=== PATIENT | female | born 1970 | race Caucasian/White ===

== ENCOUNTER 2018-03-23 07:52 | Inpatient (IN) | payer MEDICAID ==
[~2018-03-23] VITALS: Ht 172.7 cm; Wt 83.7 kg
[~2018-03-23 07:52] MED LIST: AMLO10TA6 PO; LEVO25TA4 PO; LEVO25TA7; LEVO750T6 PO
[2018-03-23] MEDS ORDERED: MORPHINE SULFATE 4 MG/ML, 1ML IVPush PRN (09:00)
[2018-03-23] MEDS ORDERED: SODIUM CHLORIDE 0.9% 1,000ML IVBOLUS ONE (09:00)
[2018-03-23] MEDS ORDERED: VANCOMYCIN PER PHARMACY MC ONE (09:00)
[2018-03-23] MEDS ORDERED: VANCOMYCIN 1,400 MG in SODIUM CHLORIDE 0.9% 250 ML IV ONE (09:00)
[2018-03-23] MEDS ORDERED: PIPERACILLIN/TAZO/PMX 3.375GM 50 ML IVPB ONE (09:00)
[2018-03-23] MEDS ORDERED: PHARMACOKINETIC CONSULTATION MC ONE ×2 (09:00→13:00)
[2018-03-23 09:22] LABS: BASOPHILS # (AUTO) 0.06 x10^3/uL (0-0.1); BASOPHILS % (AUTO) 1 % (0-1); EOSINOPHILS # (AUTO) 0.01 x10^3/uL (0-0.4); EOSINOPHILS % (AUTO) 0 % (1-7); LYMPHOCYTES # (AUTO) 0.32 x10^3/uL (1-3.4); LYMPHOCYTES % (AUTO) 3 % (22-44); MD NO; MEAN CORPUSCULAR HEMOGLOBIN 18.7 pg (27.0-34.8); MEAN CORPUSCULAR HGB CONC 30.2 g/dL (32.4-35.8); MEAN CORPUSCULAR VOLUME 62.1 fL (80-100); MEAN PLATELET VOLUME 8.8 fL (7.4-10.4); MONOCYTES # (AUTO) 0.62 x10^3/uL (0.2-0.8); MONOCYTES % (AUTO) 6 % (2-9); NEUTROPHILS # (AUTO) 9.17 x10^3/uL (1.8-6.8); NEUTROPHILS % (AUTO) 90 % (42-75); PLATELET COUNT 168 x10^3/uL (130-400); RED BLOOD COUNT 4.03 x10^6/uL (3.82-5.3); RED CELL DISTRIBUTION WIDTH 18.2 % (9.6-15.2)
[2018-03-23 09:30] LABS: INTERNATIONAL NORMALIZED RATIO 1.03 (0.93-1.1); PROTHROMBIN TIME 10.6 Seconds (9.6-11.5)
[2018-03-23 09:33] LABS: ALANINE AMINOTRANSFERASE 41 U/L (12-78); ALBUMIN 3.1 g/dL (3.4-5.0); ANION GAP 9 mmol/L (5-15); CHLORIDE 100 mmol/L (98-107)
[2018-03-23 09:37] LABS: ALKALINE PHOSPHATASE 99 U/L (45-117); BILIRUBIN,TOTAL 0.5 mg/dL (0.2-1.0); TOTAL PROTEIN 7.8 g/dL (6.4-8.2); TROPONIN I 0.053 ng/mL (0.000-0.045)
[2018-03-23] MEDS ORDERED: PIPERACILLIN/TAZO/PMX 3.375GM 50 ML ONE (10:01)
[2018-03-23] MEDS ORDERED: MORPHINE SULFATE 4 MG/ML, 1ML ONE (10:02)
[2018-03-23] MEDS ORDERED: ACETAMINOPHEN 500 MG TABLET ONE (10:27)
[2018-03-23] MEDS ORDERED: ACETAMINOPHEN 500 MG TABLET PO ONE (10:30)
[2018-03-23 11:05] LABS: MICROSCOPIC NOT IND
[2018-03-23 11:10] LABS: CULTURE INDICATED? NO
[2018-03-23] MEDS ORDERED: PIPERACILLIN/TAZO/PMX 3.375GM 50 ML IV SCH (11:30)
[2018-03-23] MEDS ORDERED: LIDODERM 5% PATCH TD PRN (11:30)
[2018-03-23] MEDS ORDERED: ONDANSETRON 2MG/ML, 2ML IVPush PRN (11:30)
[2018-03-23] MEDS ORDERED: KETOROLAC 30 MG/1 ML IV PRN (11:30)
[2018-03-23] MEDS ORDERED: METHOCARBAMOL 500 MG TABLET PO PRN (11:30)
[2018-03-23] MEDS ORDERED: VANCOMYCIN PER PHARMACY MC PRN (11:30)
[2018-03-23] MEDS ORDERED: ONDANSETRON ODT 4 MG PO PRN (11:30)
[2018-03-23] MEDS ORDERED: ACETAMINOPHEN 325 MG TABLET PO PRN (11:30)
[2018-03-23] MEDS ORDERED: ENOXAPARIN 40 MG/0.4 ML ONE (11:31)
[2018-03-23] MEDS: ENOXAPARIN 40 MG/0.4 ML SQ SCH (11:34)
[2018-03-23] MEDS ORDERED: IBUPROFEN 200 MG TABLET ONE (11:44)
[2018-03-23] MEDS: IBUPROFEN 600 MG TABLET PO PRN (11:45)
[2018-03-23 12:04] LABS: HCT (SEDRATE) 23.8 % (34.6-47.8)
[2018-03-23 12:26] LABS: C-REACTIVE PROTEIN, QUANT 1.6 mg/dL (0.02-0.49); THYROID STIMULATING HORMONE 0.755 mIU/L (0.358-3.740)
[2018-03-23] MEDS: SODIUM CHLORIDE 0.9% 1,000 ML IV SCH (12:39)
[2018-03-23 12:48] VITALS: BP 133/76
[2018-03-23] MEDS ORDERED: VANCOMYCIN 1,600 MG in SODIUM CHLORIDE 0.9% 250 ML IV SCH (13:00)
[2018-03-23] MEDS ORDERED: PHARMACOKINETIC MONITORING MC PRN (13:00)
[2018-03-23 14:22] LABS: MICROSCOPIC NOT IND
[2018-03-23 14:26] LABS: CULTURE INDICATED? NO
[2018-03-23 15:49] LABS: TROPONIN I 0.048 ng/mL (0.000-0.045)
[2018-03-23] MEDS: PIPERACILLIN/TAZO/PMX 3.375GM 50 ML IV SCH (17:40)
[2018-03-23 19:43] VITALS: BP 116/71
[2018-03-23 21:18] LABS: TROPONIN I 0.036 ng/mL (0.000-0.045)
[2018-03-23] MEDS: VANCOMYCIN 1,600 MG in SODIUM CHLORIDE 0.9% 250 ML IV SCH (21:36)
[2018-03-24 00:15] VITALS: BP 126/74
[2018-03-24] MEDS: PIPERACILLIN/TAZO/PMX 3.375GM 50 ML IV SCH ×4 (00:43→21:12)
[2018-03-24] MEDS: IBUPROFEN 600 MG TABLET PO PRN (00:52)
[2018-03-24 05:47] LABS: MEAN CORPUSCULAR HEMOGLOBIN 18.9 pg (27.0-34.8); MEAN CORPUSCULAR VOLUME 63.1 fL (80-100); RED BLOOD COUNT 4.13 x10^6/uL (3.82-5.3); RED CELL DISTRIBUTION WIDTH 18.2 % (9.6-15.2)
[2018-03-24 05:48] LABS: ALBUMIN 3.1 g/dL (3.4-5.0); ANION GAP 8 mmol/L (5-15); CALCIUM 8.1 mg/dL (8.5-10.1); CHLORIDE 107 mmol/L (98-107)
[2018-03-24 05:54] LABS: ALANINE AMINOTRANSFERASE 36 U/L (12-78); ALKALINE PHOSPHATASE 99 U/L (45-117); BILIRUBIN,TOTAL 0.5 mg/dL (0.2-1.0); CHOL/HDL RATIO 1.9; CHOLESTEROL, TOTAL 106 mg/dL (140-239); CREATININE 0.93 mg/dL (0.55-1.02); HDL CHOL % 52 % (28-40); HDL CHOLESTEROL (DIRECT) 55 mg/dL (40-60); LDL CHOLESTEROL,CALCULATED 42 mg/dL (54-169); LDL/HDL RATIO 0.8 (0.5-3.0); TOTAL PROTEIN 8.2 g/dL (6.4-8.2); TRIGLYCERIDES 46 mg/dL (50-200); VLDL CHOLESTEROL 9 mg/dL (0-25)
[2018-03-24 06:10] LABS: MD YES
[2018-03-24 06:16] LABS: PLATELET COUNT 181 x10^3/uL (130-400)
[2018-03-24 06:17] LABS: MEAN CORPUSCULAR HGB CONC 29.9 g/dL (32.4-35.8)
[2018-03-24 06:21] LABS: BAND#(MANUAL) 0.39 x10^3/uL; BANDS%(MANUAL) 4 % (0-7); EOS% (MANUAL) 1 % (1-7); LYMPH#(MANUAL) 1.08 x10^3/uL (1-3.4); LYMPHS% (MANUAL) 11 % (22-44); MONOS#(MANUAL) 0.59 x10^3/uL (0.3-2.7); MONOS% (MANUAL) 6 % (2-9); SEG#(MANUAL) 7.64 x10^3/uL (1.8-6.8); SEGS% (MANUAL) 78 % (42-75)
[2018-03-24 06:22] LABS: ANISOCYTOSIS 1+
[2018-03-24 06:23] LABS: HYPOCHROMIA 1+; MICROCYTOSIS 1+
[2018-03-24 06:26] LABS: <PLATELET ESTIMATE> ADEQUATE; <PLT MORPHOLOGY> NORMAL PLT MORPH
[2018-03-24 06:27] LABS: POLYCHROMASIA 1+
[2018-03-24 07:28] VITALS: BP 121/71
[2018-03-24] MEDS: VANCOMYCIN 1,600 MG in SODIUM CHLORIDE 0.9% 250 ML IV SCH ×2 (10:08→21:57)
[2018-03-24 12:56] VITALS: BP 119/67
[2018-03-24] MEDS: ENOXAPARIN 40 MG/0.4 ML SQ SCH (14:12)
[2018-03-24 20:00] VITALS: BP 132/75
[2018-03-24] MEDS ORDERED: GABAPENTIN 300 MG CAPSULE PO SCH (21:00)
[2018-03-24] MEDS: METHADONE 10 MG TABLET PO PRN (21:02)
[2018-03-24] MEDS: GABAPENTIN 300 MG CAPSULE PO PRN (21:03)
[2018-03-25] VITALS (10 sets, daily range): BP systolic 135–163; BP diastolic 77–95
[2018-03-25] MEDS: PIPERACILLIN/TAZO/PMX 3.375GM 50 ML IV SCH ×3 (02:03→18:02)
[2018-03-25] MEDS: SODIUM CHLORIDE 0.9% 1,000 ML IV SCH ×2 (02:03→17:00)
[2018-03-25] MEDS: IBUPROFEN 600 MG TABLET PO PRN (05:31)
[2018-03-25] MEDS: METHADONE 10 MG TABLET PO PRN ×2 (05:31→15:54)
[2018-03-25] MEDS: GABAPENTIN 300 MG CAPSULE PO PRN (05:31)
[2018-03-25 06:41] LABS: MEAN CORPUSCULAR HEMOGLOBIN 19.1 pg (27.0-34.8); MEAN CORPUSCULAR HGB CONC 30.1 g/dL (32.4-35.8); MEAN CORPUSCULAR VOLUME 63.3 fL (80-100); RED CELL DISTRIBUTION WIDTH 17.9 % (9.6-15.2)
[2018-03-25 06:42] LABS: ALANINE AMINOTRANSFERASE 31 U/L (12-78); ALBUMIN 2.6 g/dL (3.4-5.0); ANION GAP 8 mmol/L (5-15); CALCIUM 7.7 mg/dL (8.5-10.1); CHLORIDE 111 mmol/L (98-107); CREATININE 0.79 mg/dL (0.55-1.02)
[2018-03-25 06:44] LABS: ALKALINE PHOSPHATASE 69 U/L (45-117); BILIRUBIN,TOTAL 0.3 mg/dL (0.2-1.0); TOTAL PROTEIN 6.9 g/dL (6.4-8.2)
[2018-03-25 06:52] LABS: MD YES
[2018-03-25 06:54] LABS: MEAN PLATELET VOLUME 9.3 fL (7.4-10.4); PLATELET COUNT 152 x10^3/uL (130-400)
[2018-03-25 06:56] LABS: ANISOCYTOSIS 1+; EOS#(MANUAL) 0.05 x10^3/uL (0.0-0.4); EOS% (MANUAL) 1 % (1-7); LYMPH#(MANUAL) 1.54 x10^3/uL (1-3.4); LYMPHS% (MANUAL) 32 % (22-44); MICROCYTOSIS 2+; MONOS#(MANUAL) 0.43 x10^3/uL (0.3-2.7); MONOS% (MANUAL) 9 % (2-9); SEG#(MANUAL) 2.78 x10^3/uL (1.8-6.8); SEGS% (MANUAL) 58 % (42-75)
[2018-03-25 06:57] LABS: <PLATELET ESTIMATE> ADEQUATE; <PLT MORPHOLOGY> NORMAL PLT MORPH; HYPOCHROMIA 1+; OVALOCYTES 1+; POLYCHROMASIA 1+
[2018-03-25] MEDS: IRON SUCROSE COMPLEX 100MG/5ML IV SCH (09:21)
[2018-03-25] MEDS: VANCOMYCIN 1,600 MG in SODIUM CHLORIDE 0.9% 250 ML IV SCH (11:07)
[2018-03-25] MEDS: ENOXAPARIN 40 MG/0.4 ML SQ SCH (18:02)
[2018-03-26 00:08] VITALS: BP 150/88
[2018-03-26] MEDS: PIPERACILLIN/TAZO/PMX 3.375GM 50 ML IV SCH ×3 (00:11→11:37)
[2018-03-26 00:34] VITALS: BP 156/72
[2018-03-26] MEDS: IBUPROFEN 600 MG TABLET PO PRN ×2 (05:15→20:37)
[2018-03-26 05:42] LABS: ALBUMIN 2.5 g/dL (3.4-5.0); ANION GAP 8 mmol/L (5-15); CALCIUM 8.1 mg/dL (8.5-10.1); CHLORIDE 107 mmol/L (98-107)
[2018-03-26 05:47] LABS: ALANINE AMINOTRANSFERASE 29 U/L (12-78); ALKALINE PHOSPHATASE 75 U/L (45-117); BILIRUBIN,TOTAL 0.4 mg/dL (0.2-1.0); CREATININE 0.84 mg/dL (0.55-1.02); TOTAL PROTEIN 6.8 g/dL (6.4-8.2)
[2018-03-26 06:04] LABS: BASOPHILS % (AUTO) 0 % (0-1); EOSINOPHILS # (AUTO) 0.26 x10^3/uL (0-0.4); EOSINOPHILS % (AUTO) 5 % (1-7); LYMPHOCYTES # (AUTO) 2.04 x10^3/uL (1-3.4); LYMPHOCYTES % (AUTO) 37 % (22-44); MD NO; MEAN CORPUSCULAR HEMOGLOBIN 20.3 pg (27.0-34.8); MEAN CORPUSCULAR HGB CONC 30.9 g/dL (32.4-35.8); MEAN CORPUSCULAR VOLUME 65.8 fL (80-100); MEAN PLATELET VOLUME 9.2 fL (7.4-10.4); MONOCYTES # (AUTO) 0.51 x10^3/uL (0.2-0.8); MONOCYTES % (AUTO) 9 % (2-9); NEUTROPHILS # (AUTO) 2.73 x10^3/uL (1.8-6.8); NEUTROPHILS % (AUTO) 49 % (42-75); PLATELET COUNT 157 x10^3/uL (130-400); RED BLOOD COUNT 4.05 x10^6/uL (3.82-5.3); RED CELL DISTRIBUTION WIDTH 20.7 % (9.6-15.2)
[2018-03-26] MEDS: VANCOMYCIN 1,600 MG in SODIUM CHLORIDE 0.9% 250 ML IV SCH (06:40)
[2018-03-26 07:11] VITALS: BP 146/79
[2018-03-26] MEDS: IRON SUCROSE COMPLEX 100MG/5ML IV SCH (09:16)
[2018-03-26] MEDS: METHADONE 10 MG TABLET PO PRN ×2 (09:50→20:37)
[2018-03-26 12:45] VITALS: BP 138/77
[2018-03-26] MEDS: CEFAZOLIN 2,000 MG in SODIUM CHLORIDE 0.9% 50 ML IVPB SCH (17:18)
[2018-03-26] MEDS: ENOXAPARIN 40 MG/0.4 ML SQ SCH (17:19)
[2018-03-26 18:49] VITALS: BP 155/83
[2018-03-26 21:20] LABS: OCCULT BLOOD NEGATIVE (NEGATIVE)
[2018-03-27 00:06] VITALS: BP 147/87
[2018-03-27] MEDS: CEFAZOLIN 2,000 MG in SODIUM CHLORIDE 0.9% 50 ML IVPB SCH ×3 (01:36→17:08)
[2018-03-27 05:15] LABS: ALANINE AMINOTRANSFERASE 33 U/L (12-78); ALBUMIN 2.7 g/dL (3.4-5.0); ANION GAP 9 mmol/L (5-15); CHLORIDE 105 mmol/L (98-107); CREATININE 0.79 mg/dL (0.55-1.02)
[2018-03-27 05:18] LABS: ALKALINE PHOSPHATASE 83 U/L (45-117); BILIRUBIN,TOTAL 0.2 mg/dL (0.2-1.0); TOTAL PROTEIN 7.3 g/dL (6.4-8.2)
[2018-03-27 05:48] LABS: MD YES
[2018-03-27 05:49] LABS: MEAN CORPUSCULAR HEMOGLOBIN 20.3 pg (27.0-34.8); MEAN CORPUSCULAR HGB CONC 30.7 g/dL (32.4-35.8); MEAN CORPUSCULAR VOLUME 66.2 fL (80-100); MEAN PLATELET VOLUME 10.8 fL (7.4-10.4); PLATELET COUNT 207 x10^3/uL (130-400); RED BLOOD COUNT 4.66 x10^6/uL (3.82-5.3); RED CELL DISTRIBUTION WIDTH 20.2 % (9.6-15.2)
[2018-03-27 05:53] LABS: ANISOCYTOSIS 1+; EOS#(MANUAL) 0.42 x10^3/uL (0.0-0.4); EOS% (MANUAL) 8 % (1-7); LYMPH#(MANUAL) 1.98 x10^3/uL (1-3.4); LYMPHS% (MANUAL) 38 % (22-44); MONOS#(MANUAL) 0.26 x10^3/uL (0.3-2.7); MONOS% (MANUAL) 5 % (2-9); SEG#(MANUAL) 2.55 x10^3/uL (1.8-6.8); SEGS% (MANUAL) 49 % (42-75)
[2018-03-27 05:55] LABS: <PLATELET ESTIMATE> ADEQUATE; HYPOCHROMIA 1+; MICROCYTOSIS 1+; OVALOCYTES 1+; POLYCHROMASIA 1+
[2018-03-27 05:58] LABS: <PLT MORPHOLOGY> NORMAL PLT MORPH
[2018-03-27 09:07] VITALS: BP 120/68
[2018-03-27] MEDS: IRON SUCROSE COMPLEX 100MG/5ML IV SCH (09:26)
[2018-03-27] MEDS ORDERED: FUROSEMIDE 40 MG/4 ML IV ONE (12:00)
[2018-03-27] MEDS ORDERED: POTASSIUM CHLORIDE 20 MEQ TAB.ER.PRT PO ONE (12:00)
[2018-03-27] MEDS: METHADONE 10 MG TABLET PO PRN (12:06)
[2018-03-27 15:58] VITALS: BP 131/80
[2018-03-27] MEDS: ENOXAPARIN 40 MG/0.4 ML SQ SCH (17:09)
[2018-03-27 20:56] VITALS: BP 113/64
[2018-03-28] MEDS: CEFAZOLIN 2,000 MG in SODIUM CHLORIDE 0.9% 50 ML IVPB SCH ×3 (01:20→19:34)
[2018-03-28] MEDS: METHADONE 10 MG TABLET PO PRN ×3 (01:23→18:32)
[2018-03-28 01:24] VITALS: BP 133/84
[2018-03-28 05:09] LABS: ANION GAP 7 mmol/L (5-15); CALCIUM 8.6 mg/dL (8.5-10.1); CHLORIDE 103 mmol/L (98-107)
[2018-03-28 08:41] VITALS: BP 138/86
[2018-03-28 16:37] VITALS: BP 170/79
[2018-03-28 17:06] VITALS: BP 160/94
[2018-03-28] MEDS: ENOXAPARIN 40 MG/0.4 ML SQ SCH (18:00)
[2018-03-28 20:00] VITALS: BP 172/97
[2018-03-28] MEDS ORDERED: hydrALAzine 20 MG/ML, 1ML IV PRN (23:00)
[2018-03-29] MEDS: METHADONE 10 MG TABLET PO PRN ×2 (01:00→20:54)
[2018-03-29 01:59] VITALS: BP 136/76
[2018-03-29] MEDS: CEFAZOLIN 2,000 MG in SODIUM CHLORIDE 0.9% 50 ML IVPB SCH ×3 (02:21→19:34)
[2018-03-29 08:53] VITALS: BP 148/93
[2018-03-29 12:35] VITALS: BP 143/84
[2018-03-29] MEDS: LACTOBACILLUS CHEW TABLET PO SCH ×2 (15:28→20:54)
[2018-03-29] MEDS: ENOXAPARIN 40 MG/0.4 ML SQ SCH (15:29)
[2018-03-29 19:20] VITALS: BP 132/82
[2018-03-30 02:27] VITALS: BP 151/84
[2018-03-30] MEDS: CEFAZOLIN 2,000 MG in SODIUM CHLORIDE 0.9% 50 ML IVPB SCH ×3 (03:10→18:48)
[2018-03-30] MEDS: LACTOBACILLUS CHEW TABLET PO SCH ×3 (09:00→21:45)
[2018-03-30 09:50] VITALS: BP 122/71
[2018-03-30 10:02] VITALS: BP 122/71
[2018-03-30 12:17] VITALS: BP 155/85
[2018-03-30] MEDS: METHADONE 10 MG TABLET PO PRN (16:58)
[2018-03-30] MEDS: ENOXAPARIN 40 MG/0.4 ML SQ SCH (16:58)
[2018-03-30 19:43] VITALS: BP 149/90
[2018-03-31 02:00] VITALS: BP 139/81
[2018-03-31] MEDS: CEFAZOLIN 2,000 MG in SODIUM CHLORIDE 0.9% 50 ML IVPB SCH ×3 (03:00→17:59)
[2018-03-31] MEDS: LACTOBACILLUS CHEW TABLET PO SCH ×3 (09:00→20:55)
[2018-03-31 09:34] VITALS: BP 127/87
[2018-03-31] MEDS ORDERED: PROPOFOL 10 MG/ML, 20ML ONE (11:46)
[2018-03-31 14:14] VITALS: BP 133/79
[2018-03-31] MEDS: METHADONE 10 MG TABLET PO PRN (15:22)
[2018-03-31] MEDS: ENOXAPARIN 40 MG/0.4 ML SQ SCH (16:41)
[2018-03-31] MEDS: FERROUS SULFATE 325 MG TABLET PO SCH (17:59)
[2018-03-31 19:12] VITALS: BP 130/76
[2018-04-01] MEDS: METHADONE 10 MG TABLET PO PRN ×2 (01:55→10:00)
[2018-04-01] MEDS: CEFAZOLIN 2,000 MG in SODIUM CHLORIDE 0.9% 50 ML IVPB SCH ×3 (01:56→21:12)
[2018-04-01 02:07] VITALS: BP 127/80
[2018-04-01 08:25] VITALS: BP 132/74
[2018-04-01] MEDS: LACTOBACILLUS CHEW TABLET PO SCH ×3 (08:55→21:12)
[2018-04-01] MEDS: FERROUS SULFATE 325 MG TABLET PO SCH ×3 (08:55→17:37)
[2018-04-01 14:58] VITALS: BP 127/89
[2018-04-01] MEDS: ENOXAPARIN 40 MG/0.4 ML SQ SCH (17:37)
[2018-04-01 19:13] VITALS: BP 166/89
[2018-04-02] MEDS: METHADONE 10 MG TABLET PO PRN (01:18)
[2018-04-02] MEDS: CEFAZOLIN 2,000 MG in SODIUM CHLORIDE 0.9% 50 ML IVPB SCH ×3 (05:20→21:28)
[2018-04-02] MEDS: LACTOBACILLUS CHEW TABLET PO SCH ×3 (08:08→21:27)
[2018-04-02] MEDS: FERROUS SULFATE 325 MG TABLET PO SCH ×3 (08:08→16:42)
[2018-04-02] MEDS: METHADONE 10 MG TABLET PO SCH ×2 (10:10→18:02)
[2018-04-02 14:00] VITALS: BP 155/99
[2018-04-02] MEDS: ENOXAPARIN 40 MG/0.4 ML SQ SCH (18:02)
[2018-04-02 20:00] VITALS: BP 151/97
[2018-04-03] MEDS: METHADONE 10 MG TABLET PO SCH ×3 (02:00→18:05)
[2018-04-03 02:02] VITALS: BP 135/84
[2018-04-03] MEDS: CEFAZOLIN 2,000 MG in SODIUM CHLORIDE 0.9% 50 ML IVPB SCH ×3 (05:02→21:33)
[2018-04-03 08:00] VITALS: BP 124/82
[2018-04-03] MEDS: FERROUS SULFATE 325 MG TABLET PO SCH ×3 (08:31→16:40)
[2018-04-03] MEDS: LACTOBACILLUS CHEW TABLET PO SCH ×3 (08:31→21:34)
[2018-04-03 14:00] VITALS: BP 125/82
[2018-04-03] MEDS: ENOXAPARIN 40 MG/0.4 ML SQ SCH (18:05)
[2018-04-03 18:29] VITALS: BP 117/76
[2018-04-04 00:53] VITALS: BP 116/68
[2018-04-04] MEDS: METHADONE 10 MG TABLET PO SCH ×3 (02:12→18:44)
[2018-04-04 04:55] LABS: MEAN CORPUSCULAR HEMOGLOBIN 21.5 pg (27.0-34.8); MEAN CORPUSCULAR HGB CONC 30.7 g/dL (32.4-35.8); MEAN CORPUSCULAR VOLUME 69.8 fL (80-100); MEAN PLATELET VOLUME 10.2 fL (7.4-10.4); PLATELET COUNT 226 x10^3/uL (130-400); RED BLOOD COUNT 4.77 x10^6/uL (3.82-5.3); RED CELL DISTRIBUTION WIDTH 25.6 % (9.6-15.2)
[2018-04-04] MEDS: CEFAZOLIN 2,000 MG in SODIUM CHLORIDE 0.9% 50 ML IVPB SCH ×3 (05:26→21:55)
[2018-04-04 06:05] LABS: MD YES
[2018-04-04 06:07] LABS: BASOS#(MANUAL) 0.04 x10^3/uL (0-0.1); BASOS% (MANUAL) 1 % (0-1); EOS#(MANUAL) 0.31 x10^3/uL (0.0-0.4); EOS% (MANUAL) 8 % (1-7); LYMPH#(MANUAL) 2.15 x10^3/uL (1-3.4); LYMPHS% (MANUAL) 55 % (22-44); MONOS#(MANUAL) 0.16 x10^3/uL (0.3-2.7); MONOS% (MANUAL) 4 % (2-9); SEG#(MANUAL) 1.25 x10^3/uL (1.8-6.8); SEGS% (MANUAL) 32 % (42-75)
[2018-04-04 06:08] LABS: ANISOCYTOSIS 1+; HYPOCHROMIA 1+; MICROCYTOSIS 1+
[2018-04-04 06:09] LABS: <PLATELET ESTIMATE> ADEQUATE; LARGE PLATELETS 1+; OVALOCYTES 1+
[2018-04-04 08:00] VITALS: BP 160/93
[2018-04-04] MEDS: LACTOBACILLUS CHEW TABLET PO SCH ×3 (10:47→21:55)
[2018-04-04] MEDS: FERROUS SULFATE 325 MG TABLET PO SCH ×3 (10:47→18:44)
[2018-04-04] MEDS: ENOXAPARIN 40 MG/0.4 ML SQ SCH (18:44)
[2018-04-04 23:37] VITALS: BP 115/68
[2018-04-05 02:16] VITALS: BP 118/71
[2018-04-05] MEDS: METHADONE 10 MG TABLET PO SCH ×3 (02:19→18:39)
[2018-04-05] MEDS: CEFAZOLIN 2,000 MG in SODIUM CHLORIDE 0.9% 50 ML IVPB SCH ×3 (05:55→21:19)
[2018-04-05] MEDS: FERROUS SULFATE 325 MG TABLET PO SCH ×3 (08:12→17:31)
[2018-04-05] MEDS: LACTOBACILLUS CHEW TABLET PO SCH ×3 (08:12→21:19)
[2018-04-05 08:20] VITALS: BP 117/72
[2018-04-05 16:11] VITALS: BP 129/74
[2018-04-05] MEDS: ENOXAPARIN 40 MG/0.4 ML SQ SCH (18:39)
[2018-04-05 19:28] VITALS: BP 138/78
[2018-04-06] MEDS: METHADONE 10 MG TABLET PO SCH ×3 (02:12→17:45)
[2018-04-06] MEDS: CEFAZOLIN 2,000 MG in SODIUM CHLORIDE 0.9% 50 ML IVPB SCH ×3 (05:06→20:33)
[2018-04-06 07:27] VITALS: BP 161/103
[2018-04-06] MEDS: LACTOBACILLUS CHEW TABLET PO SCH ×3 (08:57→20:33)
[2018-04-06] MEDS: FERROUS SULFATE 325 MG TABLET PO SCH ×3 (08:57→17:46)
[2018-04-06 10:24] LABS: ALANINE AMINOTRANSFERASE 29 U/L (12-78); ALBUMIN 3.2 g/dL (3.4-5.0); ANION GAP 8 mmol/L (5-15); C-REACTIVE PROTEIN, QUANT 0.09 mg/dL (0.02-0.49); CALCIUM 8.3 mg/dL (8.5-10.1); CHLORIDE 105 mmol/L (98-107); CREATININE 0.83 mg/dL (0.55-1.02)
[2018-04-06 10:26] LABS: ALKALINE PHOSPHATASE 94 U/L (45-117); BILIRUBIN,TOTAL 0.5 mg/dL (0.2-1.0); TOTAL PROTEIN 7.8 g/dL (6.4-8.2)
[2018-04-06 10:38] LABS: MEAN CORPUSCULAR HGB CONC 30.1 g/dL (32.4-35.8); MEAN CORPUSCULAR VOLUME 69.5 fL (80-100); MEAN PLATELET VOLUME 10.4 fL (7.4-10.4); PLATELET COUNT 226 x10^3/uL (130-400); RED BLOOD COUNT 4.77 x10^6/uL (3.82-5.3); RED CELL DISTRIBUTION WIDTH 26.5 % (9.6-15.2)
[2018-04-06 10:49] LABS: MD YES
[2018-04-06 10:50] LABS: EOS#(MANUAL) 0.11 x10^3/uL (0.0-0.4); EOS% (MANUAL) 3 % (1-7); LYMPH#(MANUAL) 1.26 x10^3/uL (1-3.4); LYMPHS% (MANUAL) 35 % (22-44); MONOS#(MANUAL) 0.47 x10^3/uL (0.3-2.7); MONOS% (MANUAL) 13 % (2-9); SEG#(MANUAL) 1.76 x10^3/uL (1.8-6.8); SEGS% (MANUAL) 49 % (42-75)
[2018-04-06 10:51] LABS: <PLATELET ESTIMATE> ADEQUATE
[2018-04-06 10:52] LABS: ANISOCYTOSIS 1+; HYPOCHROMIA 1+; LARGE PLATELETS 1+; MICROCYTOSIS 1+
[2018-04-06 11:00] LABS: HCT (SEDRATE) 33.1 % (34.6-47.8)
[2018-04-06 12:56] VITALS: BP 111/71
[2018-04-06] MEDS: ENOXAPARIN 40 MG/0.4 ML SQ SCH (17:46)
[2018-04-06 19:29] VITALS: BP 141/72
[2018-04-07 01:48] VITALS: BP 137/88
[2018-04-07] MEDS: METHADONE 10 MG TABLET PO SCH ×3 (05:30→22:33)
[2018-04-07] MEDS: CEFAZOLIN 2,000 MG in SODIUM CHLORIDE 0.9% 50 ML IVPB SCH ×2 (05:30→13:00)
[2018-04-07 08:00] VITALS: BP 127/71
[2018-04-07] MEDS: FERROUS SULFATE 325 MG TABLET PO SCH ×3 (09:19→16:46)
[2018-04-07] MEDS: LACTOBACILLUS CHEW TABLET PO SCH ×3 (09:19→22:33)
[2018-04-07] MEDS: CEFAZOLIN PMX 2GM/50ML 50 ML IVPB SCH ×2 (13:56→22:34)
[2018-04-07 14:12] VITALS: BP 118/72
[2018-04-07] MEDS: ENOXAPARIN 40 MG/0.4 ML SQ SCH (18:02)
[2018-04-07 19:39] VITALS: BP 152/88
[2018-04-08 01:36] VITALS: BP 146/82
[2018-04-08] MEDS: CEFAZOLIN PMX 2GM/50ML 50 ML IVPB SCH ×3 (06:07→22:10)
[2018-04-08] MEDS: METHADONE 10 MG TABLET PO SCH ×3 (06:07→22:00)
[2018-04-08 07:40] VITALS: BP 142/79
[2018-04-08] MEDS: FERROUS SULFATE 325 MG TABLET PO SCH ×3 (08:00→17:00)
[2018-04-08] MEDS: LACTOBACILLUS CHEW TABLET PO SCH ×3 (09:00→21:00)
[2018-04-08 13:06] VITALS: BP 139/76
[2018-04-08] MEDS ORDERED: DOCUSATE 100 MG CAPSULE PO PRN (16:00)
[2018-04-08] MEDS: ENOXAPARIN 40 MG/0.4 ML SQ SCH (18:00)
[2018-04-08 21:18] VITALS: BP 144/93
[2018-04-09] MEDS: METHADONE 10 MG TABLET PO SCH ×3 (05:56→17:58)
[2018-04-09 07:00] VITALS: BP 160/75
[2018-04-09] MEDS: LACTOBACILLUS CHEW TABLET PO SCH ×3 (08:38→19:34)
[2018-04-09] MEDS: FERROUS SULFATE 325 MG TABLET PO SCH ×3 (08:38→15:58)
[2018-04-09] MEDS: CEFAZOLIN PMX 2GM/50ML 50 ML IVPB SCH ×2 (08:40→15:58)
[2018-04-09 13:30] VITALS: BP 125/75
[2018-04-09 16:27] LABS: AMPHETAMINE SCREEN, URINE Positive (Negative); BARBITURATE SCREEN, URINE Negative (Negative); BENZODIAZEPINE SCREEN, URINE Negative (Negative); CANNABINOID SCREEN, URINE Negative (Negative); COCAINE SCREEN, URINE Negative (Negative); METHADONE SCREEN, URINE Positive (Negative); OPIATE SCREEN, URINE Positive (Negative)
[2018-04-09] MEDS: ENOXAPARIN 40 MG/0.4 ML SQ SCH (18:00)
[2018-04-09 19:31] VITALS: BP 125/81
[2018-04-10] MEDS: CEFAZOLIN PMX 2GM/50ML 50 ML IVPB SCH ×3 (02:28→19:31)
[2018-04-10] MEDS: METHADONE 10 MG TABLET PO SCH ×3 (02:28→18:32)
[2018-04-10] MEDS: FERROUS SULFATE 325 MG TABLET PO SCH ×3 (08:00→18:32)
[2018-04-10 08:24] VITALS: BP 123/77
[2018-04-10] MEDS: LACTOBACILLUS CHEW TABLET PO SCH ×3 (09:00→21:21)
[2018-04-10 13:36] VITALS: BP 119/78
[2018-04-10] MEDS: ENOXAPARIN 40 MG/0.4 ML SQ SCH (18:00)
[2018-04-10 19:10] VITALS: BP 112/69
[2018-04-11 00:40] VITALS: BP 130/67
[2018-04-11] MEDS: METHADONE 10 MG TABLET PO SCH ×3 (02:06→18:23)
[2018-04-11] MEDS: CEFAZOLIN PMX 2GM/50ML 50 ML IVPB SCH ×3 (03:15→18:23)
[2018-04-11 08:21] VITALS: BP 143/88
[2018-04-11] MEDS: FERROUS SULFATE 325 MG TABLET PO SCH ×3 (09:05→18:24)
[2018-04-11] MEDS: LACTOBACILLUS CHEW TABLET PO SCH ×3 (09:05→20:50)
[2018-04-11] MEDS ORDERED: METHADONE 5 MG TABLET ONE (09:53)
[2018-04-11] MEDS ORDERED: LORazepam 2 MG/ML, 1ML IVPush PRN (11:30)
[2018-04-11 14:00] VITALS: BP 149/101
[2018-04-11] MEDS: ENOXAPARIN 40 MG/0.4 ML SQ SCH (17:49)
[2018-04-11 18:33] VITALS: BP 146/94
[2018-04-12 00:56] VITALS: BP 143/90
[2018-04-12] MEDS: METHADONE 10 MG TABLET PO SCH ×3 (02:36→17:36)
[2018-04-12 03:00] LABS: MEAN CORPUSCULAR HEMOGLOBIN 21.9 pg (27.0-34.8); MEAN CORPUSCULAR HGB CONC 30.7 g/dL (32.4-35.8); MEAN CORPUSCULAR VOLUME 71.3 fL (80-100); MEAN PLATELET VOLUME 10.6 fL (7.4-10.4); PLATELET COUNT 192 x10^3/uL (130-400); RED BLOOD COUNT 4.24 x10^6/uL (3.82-5.3); RED CELL DISTRIBUTION WIDTH 29.1 % (9.6-15.2)
[2018-04-12 03:03] LABS: MD YES
[2018-04-12 03:10] LABS: ALANINE AMINOTRANSFERASE 25 U/L (12-78); ANION GAP 8 mmol/L (5-15); CALCIUM 8.4 mg/dL (8.5-10.1); CHLORIDE 103 mmol/L (98-107)
[2018-04-12] MEDS: CEFAZOLIN PMX 2GM/50ML 50 ML IVPB SCH ×3 (03:10→19:25)
[2018-04-12 03:13] LABS: <PLATELET ESTIMATE> ADEQUATE; ALKALINE PHOSPHATASE 89 U/L (45-117); ANISOCYTOSIS 1+; BAND#(MANUAL) 0.04 x10^3/uL; BANDS%(MANUAL) 1 % (0-7); BILIRUBIN,TOTAL 0.2 mg/dL (0.2-1.0); CREATININE 0.93 mg/dL (0.55-1.02); EOS#(MANUAL) 0.07 x10^3/uL (0.0-0.4); EOS% (MANUAL) 2 % (1-7); LARGE PLATELETS 1+; LYMPH#(MANUAL) 1.73 x10^3/uL (1-3.4); LYMPHS% (MANUAL) 48 % (22-44); MICROCYTOSIS 1+; MONOS#(MANUAL) 0.54 x10^3/uL (0.3-2.7); MONOS% (MANUAL) 15 % (2-9); OVALOCYTES 1+; POLYCHROMASIA 1+; SEG#(MANUAL) 1.22 x10^3/uL (1.8-6.8); SEGS% (MANUAL) 34 % (42-75); TOTAL PROTEIN 7.7 g/dL (6.4-8.2)
[2018-04-12] MEDS: FERROUS SULFATE 325 MG TABLET PO SCH ×3 (09:40→17:14)
[2018-04-12] MEDS: LACTOBACILLUS CHEW TABLET PO SCH ×3 (09:40→19:25)
[2018-04-12 13:32] VITALS: BP 155/94
[2018-04-12] MEDS: ENOXAPARIN 40 MG/0.4 ML SQ SCH (17:14)
[2018-04-12 19:16] VITALS: BP 146/87
[2018-04-13 03:03] VITALS: BP 128/80
[2018-04-13] MEDS: CEFAZOLIN PMX 2GM/50ML 50 ML IVPB SCH ×3 (03:10→19:29)
[2018-04-13] MEDS: METHADONE 10 MG TABLET PO SCH ×3 (03:10→17:58)
[2018-04-13 08:21] VITALS: BP 146/88
[2018-04-13] MEDS: LACTOBACILLUS CHEW TABLET PO SCH ×3 (10:37→19:28)
[2018-04-13] MEDS: FERROUS SULFATE 325 MG TABLET PO SCH ×3 (10:37→16:50)
[2018-04-13 12:15] VITALS: BP 147/90
[2018-04-13] MEDS: ENOXAPARIN 40 MG/0.4 ML SQ SCH (17:47)
[2018-04-13 19:46] VITALS: BP 123/73
[2018-04-14 01:44] VITALS: BP 118/68
[2018-04-14] MEDS: METHADONE 10 MG TABLET PO SCH ×3 (03:17→17:13)
[2018-04-14] MEDS: CEFAZOLIN PMX 2GM/50ML 50 ML IVPB SCH ×3 (03:24→20:31)
[2018-04-14 07:50] VITALS: BP 147/96
[2018-04-14] MEDS: LACTOBACILLUS CHEW TABLET PO SCH ×3 (09:41→20:31)
[2018-04-14] MEDS: FERROUS SULFATE 325 MG TABLET PO SCH ×3 (09:42→17:13)
[2018-04-14 13:06] VITALS: BP 138/88
[2018-04-14] MEDS: ENOXAPARIN 40 MG/0.4 ML SQ SCH (16:40)
[2018-04-14 19:38] VITALS: BP 108/68
[2018-04-15 01:57] VITALS: BP 101/62
[2018-04-15] MEDS: METHADONE 10 MG TABLET PO SCH ×3 (02:19→17:40)
[2018-04-15] MEDS: CEFAZOLIN 2,000 MG in SODIUM CHLORIDE 0.9% 50 ML IVPB SCH ×3 (03:47→22:40)
[2018-04-15 05:52] LABS: MICROSCOPIC NOT IND
[2018-04-15 06:04] LABS: AMPHETAMINE SCREEN, URINE Positive (Negative); BARBITURATE SCREEN, URINE Negative (Negative); BENZODIAZEPINE SCREEN, URINE Negative (Negative); CANNABINOID SCREEN, URINE Negative (Negative); COCAINE SCREEN, URINE Negative (Negative); METHADONE SCREEN, URINE Positive (Negative); OPIATE SCREEN, URINE Positive (Negative)
[2018-04-15 07:45] VITALS: BP 145/87
[2018-04-15] MEDS: LACTOBACILLUS CHEW TABLET PO SCH ×3 (09:29→21:00)
[2018-04-15] MEDS: FERROUS SULFATE 325 MG TABLET PO SCH ×3 (09:29→16:41)
[2018-04-15 13:09] VITALS: BP 144/83
[2018-04-15] MEDS: ACYCLOVIR 200 MG CAPSULE PO SCH ×3 (14:13→21:00)
[2018-04-15] MEDS: ENOXAPARIN 40 MG/0.4 ML SQ SCH (16:42)
[2018-04-15 18:48] VITALS: BP 162/82
[2018-04-16] MEDS: METHADONE 10 MG TABLET PO SCH ×2 (02:13→16:42)
[2018-04-16] MEDS: ACYCLOVIR 200 MG CAPSULE PO SCH ×5 (06:26→21:23)
[2018-04-16] MEDS: CEFAZOLIN 2,000 MG in SODIUM CHLORIDE 0.9% 50 ML IVPB SCH ×3 (06:26→21:23)
[2018-04-16] MEDS: FERROUS SULFATE 325 MG TABLET PO SCH ×3 (08:00→16:41)
[2018-04-16] MEDS: LACTOBACILLUS CHEW TABLET PO SCH ×3 (08:52→21:23)
[2018-04-16 09:44] VITALS: BP 120/75
[2018-04-16 15:59] VITALS: BP 162/107
[2018-04-16 16:40] VITALS: BP 154/90
[2018-04-16] MEDS: ENOXAPARIN 40 MG/0.4 ML SQ SCH (18:00)
[2018-04-17] MEDS: METHADONE 10 MG TABLET PO SCH ×4 (00:02→20:56)
[2018-04-17] MEDS: CEFAZOLIN 2,000 MG in SODIUM CHLORIDE 0.9% 50 ML IVPB SCH ×3 (05:32→22:26)
[2018-04-17 06:01] LABS: CHLORIDE 102 mmol/L (98-107); MEAN CORPUSCULAR HEMOGLOBIN 22.1 pg (27.0-34.8); MEAN CORPUSCULAR HGB CONC 30.5 g/dL (32.4-35.8); MEAN CORPUSCULAR VOLUME 72.4 fL (80-100); MEAN PLATELET VOLUME 10.3 fL (7.4-10.4); PLATELET COUNT 221 x10^3/uL (130-400); RED BLOOD COUNT 4.83 x10^6/uL (3.82-5.3); RED CELL DISTRIBUTION WIDTH 29.2 % (9.6-15.2)
[2018-04-17 06:07] LABS: ALANINE AMINOTRANSFERASE 17 U/L (12-78); ALKALINE PHOSPHATASE 90 U/L (45-117); ANION GAP 6 mmol/L (5-15); BILIRUBIN,TOTAL 0.4 mg/dL (0.2-1.0); C-REACTIVE PROTEIN, QUANT 0.15 mg/dL (0.02-0.49); CALCIUM 8.7 mg/dL (8.5-10.1); CREATININE 0.71 mg/dL (0.55-1.02); TOTAL PROTEIN 7.6 g/dL (6.4-8.2)
[2018-04-17 06:15] LABS: MD YES
[2018-04-17] MEDS: ACYCLOVIR 200 MG CAPSULE PO SCH ×5 (06:15→21:00)
[2018-04-17 06:18] LABS: <PLATELET ESTIMATE> ADEQUATE; ANISOCYTOSIS 1+; EOS#(MANUAL) 0.17 x10^3/uL (0.0-0.4); EOS% (MANUAL) 5 % (1-7); LARGE PLATELETS 1+; LYMPH#(MANUAL) 1.94 x10^3/uL (1-3.4); LYMPHS% (MANUAL) 57 % (22-44); MICROCYTOSIS 1+; MONOS% (MANUAL) 6 % (2-9); OVALOCYTES 1+; POLYCHROMASIA 1+; SEG#(MANUAL) 1.09 x10^3/uL (1.8-6.8); SEGS% (MANUAL) 32 % (42-75)
[2018-04-17 06:19] LABS: HYPOCHROMIA 1+
[2018-04-17] MEDS: FERROUS SULFATE 325 MG TABLET PO SCH ×3 (08:00→16:47)
[2018-04-17] MEDS: LACTOBACILLUS CHEW TABLET PO SCH ×3 (09:00→21:00)
[2018-04-17 14:29] VITALS: BP 138/86
[2018-04-17] MEDS: ENOXAPARIN 40 MG/0.4 ML SQ SCH (18:06)
[2018-04-17 20:59] VITALS: BP 143/89
[2018-04-18] MEDS: ACYCLOVIR 200 MG CAPSULE PO SCH ×5 (06:00→21:00)
[2018-04-18] MEDS: CEFAZOLIN 2,000 MG in SODIUM CHLORIDE 0.9% 50 ML IVPB SCH ×3 (06:15→22:03)
[2018-04-18] MEDS: FERROUS SULFATE 325 MG TABLET PO SCH ×3 (08:00→16:06)
[2018-04-18] MEDS: LACTOBACILLUS CHEW TABLET PO SCH ×3 (08:21→21:00)
[2018-04-18] MEDS: METHADONE 10 MG TABLET PO SCH ×3 (08:26→20:38)
[2018-04-18] MEDS: ENOXAPARIN 40 MG/0.4 ML SQ SCH (17:30)
[2018-04-18 20:38] VITALS: BP 149/89
[2018-04-19] MEDS: CEFAZOLIN 2,000 MG in SODIUM CHLORIDE 0.9% 50 ML IVPB SCH ×3 (05:36→21:48)
[2018-04-19] MEDS: ACYCLOVIR 200 MG CAPSULE PO SCH ×5 (05:54→20:36)
[2018-04-19 06:36] VITALS: BP 113/71
[2018-04-19] MEDS: LACTOBACILLUS CHEW TABLET PO SCH ×3 (09:17→20:36)
[2018-04-19] MEDS: METHADONE 10 MG TABLET PO SCH ×3 (09:17→20:37)
[2018-04-19] MEDS: FERROUS SULFATE 325 MG TABLET PO SCH ×3 (09:17→16:05)
[2018-04-19 12:07] VITALS: BP 122/80
[2018-04-19] MEDS: ENOXAPARIN 40 MG/0.4 ML SQ SCH (17:44)
[2018-04-19 20:38] VITALS: BP 121/74
[2018-04-20 03:55] VITALS: BP 133/74
[2018-04-20] MEDS ORDERED: CATHFLO-ALTEPLASE 2 MG/2 ML CATHFLUSH ONE (05:00)
[2018-04-20] MEDS: CEFAZOLIN 2,000 MG in SODIUM CHLORIDE 0.9% 50 ML IVPB SCH ×2 (05:58→14:24)
[2018-04-20] MEDS: ACYCLOVIR 200 MG CAPSULE PO SCH ×5 (06:00→20:28)
[2018-04-20 06:17] LABS: HCT (SEDRATE) 33.5 % (34.6-47.8)
[2018-04-20 06:25] LABS: ANION GAP 7 mmol/L (5-15); CALCIUM 8.1 mg/dL (8.5-10.1); CHLORIDE 104 mmol/L (98-107)
[2018-04-20 06:28] LABS: ALANINE AMINOTRANSFERASE 20 U/L (12-78); ALKALINE PHOSPHATASE 87 U/L (45-117); BILIRUBIN,TOTAL 0.2 mg/dL (0.2-1.0); C-REACTIVE PROTEIN, QUANT 0.06 mg/dL (0.02-0.49); CREATININE 0.77 mg/dL (0.55-1.02); TOTAL PROTEIN 7.3 g/dL (6.4-8.2)
[2018-04-20 06:51] VITALS: BP 120/69
[2018-04-20 06:53] LABS: MEAN CORPUSCULAR HEMOGLOBIN 22.4 pg (27.0-34.8); MEAN CORPUSCULAR VOLUME 72.3 fL (80-100); RED BLOOD COUNT 4.62 x10^6/uL (3.82-5.3); RED CELL DISTRIBUTION WIDTH 29.3 % (9.6-15.2)
[2018-04-20 06:54] LABS: MD YES; PLATELET COUNT 194 x10^3/uL (130-400)
[2018-04-20 06:56] LABS: BASOS#(MANUAL) 0.04 x10^3/uL (0-0.1); BASOS% (MANUAL) 1 % (0-1); MONOS#(MANUAL) 0.49 x10^3/uL (0.3-2.7); MONOS% (MANUAL) 12 % (2-9)
[2018-04-20 06:57] LABS: ANISOCYTOSIS 1+; EOS#(MANUAL) 0.25 x10^3/uL (0.0-0.4); EOS% (MANUAL) 6 % (1-7); LYMPH#(MANUAL) 2.21 x10^3/uL (1-3.4); LYMPHS% (MANUAL) 54 % (22-44); MICROCYTOSIS 1+; SEG#(MANUAL) 1.11 x10^3/uL (1.8-6.8); SEGS% (MANUAL) 27 % (42-75)
[2018-04-20 06:58] LABS: <PLATELET ESTIMATE> ADEQUATE; HYPOCHROMIA 1+; LARGE PLATELETS 1+; OVALOCYTES 1+
[2018-04-20] MEDS: LACTOBACILLUS CHEW TABLET PO SCH ×3 (08:42→20:28)
[2018-04-20] MEDS: FERROUS SULFATE 325 MG TABLET PO SCH ×3 (08:42→17:38)
[2018-04-20] MEDS: METHADONE 10 MG TABLET PO SCH ×3 (08:42→20:28)
[2018-04-20 14:30] VITALS: BP 104/65
[2018-04-20] MEDS: ENOXAPARIN 40 MG/0.4 ML SQ SCH (17:38)
[2018-04-20] MEDS ORDERED: CEFAZOLIN 2,000 MG in DEXTROSE 5% 100 ML IVPB SCH (18:33)
[2018-04-20 19:13] VITALS: BP 142/90
[2018-04-20] MEDS: CEFAZOLIN 2,000 MG in DEXTROSE 5% 50 ML IVPB SCH (22:37)
[2018-04-21] MEDS: ACYCLOVIR 200 MG CAPSULE PO SCH ×5 (05:21→21:32)
[2018-04-21] MEDS: CEFAZOLIN 2,000 MG in DEXTROSE 5% 50 ML IVPB SCH ×3 (06:22→22:34)
[2018-04-21 07:16] VITALS: BP 157/102
[2018-04-21] MEDS: FERROUS SULFATE 325 MG TABLET PO SCH ×3 (08:56→18:10)
[2018-04-21] MEDS: LACTOBACILLUS CHEW TABLET PO SCH ×3 (08:56→21:32)
[2018-04-21] MEDS: METHADONE 10 MG TABLET PO SCH ×3 (08:56→21:32)
[2018-04-21 14:36] VITALS: BP 135/87
[2018-04-21] MEDS: ENOXAPARIN 40 MG/0.4 ML SQ SCH (18:00)
[2018-04-21 18:55] VITALS: BP 141/93
[2018-04-22 01:55] VITALS: BP 102/65
[2018-04-22] MEDS: ACYCLOVIR 200 MG CAPSULE PO SCH ×3 (06:31→13:59)
[2018-04-22] MEDS: CEFAZOLIN 2,000 MG in DEXTROSE 5% 50 ML IVPB SCH ×2 (06:32→15:39)
[2018-04-22 07:50] VITALS: BP 110/68
[2018-04-22] MEDS: FERROUS SULFATE 325 MG TABLET PO SCH ×3 (08:00→16:34)
[2018-04-22] MEDS: METHADONE 10 MG TABLET PO SCH (09:00)
[2018-04-22] MEDS: LACTOBACILLUS CHEW TABLET PO SCH ×3 (09:00→20:55)
[2018-04-22] MEDS ORDERED: METHADONE 5 MG TABLET ONE ×2 (09:00→16:19)
[2018-04-22 14:27] VITALS: BP 114/75
[2018-04-22] MEDS: ENOXAPARIN 40 MG/0.4 ML SQ SCH (16:17)
[2018-04-22] MEDS: METHADONE 5 MG TABLET PO SCH ×2 (16:34→20:55)
[2018-04-22 18:44] VITALS: BP 150/90
[2018-04-22] MEDS ORDERED: METHADONE 5 MG TABLET PO SCH (21:00)
[2018-04-23] MEDS: CEFAZOLIN 2,000 MG in SODIUM CHLORIDE 0.9% 50 ML IVPB SCH ×3 (01:21→16:54)
[2018-04-23 01:24] VITALS: BP 136/82
[2018-04-23 06:33] VITALS: BP 105/63
[2018-04-23] MEDS: LACTOBACILLUS CHEW TABLET PO SCH ×3 (09:16→21:15)
[2018-04-23] MEDS: METHADONE 5 MG TABLET PO SCH ×3 (09:16→21:15)
[2018-04-23] MEDS: FERROUS SULFATE 325 MG TABLET PO SCH ×3 (09:16→16:54)
[2018-04-23 13:03] VITALS: BP 143/94
[2018-04-23] MEDS: ENOXAPARIN 40 MG/0.4 ML SQ SCH (17:53)
[2018-04-23 19:01] VITALS: BP 155/83
[2018-04-24 01:13] VITALS: BP 142/99
[2018-04-24] MEDS: CEFAZOLIN 2,000 MG in SODIUM CHLORIDE 0.9% 50 ML IV SCH ×3 (01:20→17:23)
[2018-04-24 06:35] VITALS: BP 123/77
[2018-04-24] MEDS: FERROUS SULFATE 325 MG TABLET PO SCH ×2 (09:03→21:28)
[2018-04-24] MEDS: METHADONE 5 MG TABLET PO SCH ×3 (09:03→21:28)
[2018-04-24] MEDS: LACTOBACILLUS CHEW TABLET PO SCH ×3 (09:03→21:28)
[2018-04-24 14:26] VITALS: BP 147/88
[2018-04-24] MEDS: ENOXAPARIN 40 MG/0.4 ML SQ SCH (17:23)
[2018-04-24 21:35] VITALS: BP 144/84
[2018-04-25] MEDS: CEFAZOLIN 2,000 MG in SODIUM CHLORIDE 0.9% 50 ML IV SCH ×3 (01:08→19:36)
[2018-04-25 04:17] VITALS: BP 103/64
[2018-04-25 04:43] LABS: CREATININE 0.71 mg/dL (0.55-1.02)
[2018-04-25 06:36] VITALS: BP 108/66
[2018-04-25] MEDS: METHADONE 5 MG TABLET PO SCH ×3 (09:53→20:50)
[2018-04-25] MEDS: LACTOBACILLUS CHEW TABLET PO SCH ×3 (09:53→20:51)
[2018-04-25] MEDS: FERROUS SULFATE 325 MG TABLET PO SCH ×2 (09:53→20:51)
[2018-04-25 14:26] VITALS: BP 135/85
[2018-04-25] MEDS: ENOXAPARIN 40 MG/0.4 ML SQ SCH (18:00)
[2018-04-25 18:55] VITALS: BP 139/84
[2018-04-26 03:43] VITALS: BP 144/87
[2018-04-26] MEDS: CEFAZOLIN PMX 2GM/50ML 50 ML IVPB SCH ×3 (03:47→20:05)
[2018-04-26 06:46] VITALS: BP 150/85
[2018-04-26] MEDS: METHADONE 5 MG TABLET PO SCH ×3 (08:41→22:08)
[2018-04-26] MEDS: LACTOBACILLUS CHEW TABLET PO SCH ×3 (08:41→20:33)
[2018-04-26] MEDS: FERROUS SULFATE 325 MG TABLET PO SCH ×2 (08:41→20:33)
[2018-04-26 12:27] VITALS: BP 134/86
[2018-04-26] MEDS: ENOXAPARIN 40 MG/0.4 ML SQ SCH (18:00)
[2018-04-26 18:40] VITALS: BP 155/88
[2018-04-27] MEDS: CEFAZOLIN PMX 2GM/50ML 50 ML IVPB SCH ×2 (05:49→14:00)
[2018-04-27 07:52] VITALS: BP 147/88
[2018-04-27] MEDS: FERROUS SULFATE 325 MG TABLET PO SCH (09:41)
[2018-04-27] MEDS: METHADONE 5 MG TABLET PO SCH ×2 (09:41→16:40)
[2018-04-27] MEDS: LACTOBACILLUS CHEW TABLET PO SCH ×2 (09:41→16:40)
[2018-04-27 12:27] VITALS: BP 174/113
[2018-04-27] MEDS ORDERED: CEPH-368 PO (13:36)
== END 2018-04-27 18:11 | disposition left against medical advice (07) | DRG 871 ==
LOC: ED 10:19 → EDIP 10:20 → ED 10:46 → 4WST 12:07 → 3NE 04-08 22:27
PROVIDERS: ADMIT Internal Medicine; ATTEND Family Medicine
PROC: 30233N1 Transfusion of Nonautologous Red Blood Cells into Peripheral Vein, Percutaneous Approach (ICD-10-PCS; principal; 2018-03-25)
PROC: 02HV33Z Insertion of Infusion Device into Superior Vena Cava, Percutaneous Approach (ICD-10-PCS; 2018-04-07)
PROC: B5181ZA Fluoroscopy of Superior Vena Cava using Low Osmolar Contrast, Guidance (ICD-10-PCS; 2018-04-07)
PROC: B548ZZA Ultrasonography of Superior Vena Cava, Guidance (ICD-10-PCS; 2018-04-07)
DX: A41.01 Sepsis due to Methicillin susceptible Staphylococcus aureus (principal); I33.0 Acute and subacute infective endocarditis; B00.2 Herpesviral gingivostomatitis and pharyngotonsillitis; F11.23 Opioid dependence with withdrawal; J98.11 Atelectasis; L02.31 Cutaneous abscess of buttock; L97.929 Non-pressure chronic ulcer of unspecified part of left lower leg with unspecified severity; L03.116 Cellulitis of left lower limb; B18.2 Chronic viral hepatitis C; B95.62 Methicillin resistant Staphylococcus aureus infection as the cause of diseases classified elsewhere; D50.9 Iron deficiency anemia, unspecified; E03.9 Hypothyroidism, unspecified; F15.10 Other stimulant abuse, uncomplicated; F32.9 Major depressive disorder, single episode, unspecified; F91.9 Conduct disorder, unspecified; I07.1 Rheumatic tricuspid insufficiency; I10 Essential (primary) hypertension; I37.1 Nonrheumatic pulmonary valve insufficiency; M79.7 Fibromyalgia; Z80.1 Family history of malignant neoplasm of trachea, bronchus and lung; Z80.3 Family history of malignant neoplasm of breast; Z86.61 Personal history of infections of the central nervous system; Z87.891 Personal history of nicotine dependence; Z91.14 Patient's other noncompliance with medication regimen; Z86.19 Personal history of other infectious and parasitic diseases; M48.061 Spinal stenosis, lumbar region without neurogenic claudication; Z88.8 Allergy status to other drugs, medicaments and biological substances; Z53.21 Procedure and treatment not carried out due to patient leaving prior to being seen by health care provider; Z71.51 Drug abuse counseling and surveillance of drug abuser
CPT/HCPCS: 36415; 36569; 70450; 71045; 76937; 77001; 80048; 80053; 80061; 80202; 80307; 80356; 81003; 82272; 82565; 82728; 83540; 83550; 83605; 83735; 84100; 84145; 84443; 84466; 84484; 85025; 85610; 85651; 86140; 86361; 86480; 86592; 86701; 86702; 86704; 86706; 86708; 86803; 86850; 86900; 86923; 87040; 87070; 87077; 87147; 87186; 87205; 87340; 87491; 87522; 87535; 87536; 87591; 87806; 93005; 93306; 93312; 93325; 96365; 96375; 99285; G0378; J0690; J1650; J1756; J1940; J2543; J2704; J2997; J3370; C1751; G0475; G0480; J7030; J7050; P9016

== ENCOUNTER 2018-10-11 22:15 | Emergency (ER) | payer MEDICAID ==
[~2018-10-11] VITALS: Ht 175.3 cm; Wt 83.0 kg
[~2018-10-11 22:15] MED LIST changes: -AMLO10TA6 PO; +AMLO10TA8 PO; +CEPH-368 PO
[2018-10-11] MEDS ORDERED: SODIUM CHLORIDE 0.9% 1,000ML IVBOLUS ONE (22:30)
[2018-10-11] MEDS ORDERED: SODIUM CHLORIDE FLUSH 10ML SYR IVF ONE (22:30)
[2018-10-11] MEDS ORDERED: LORazepam 2 MG/ML, 1ML ONE (23:09)
--- NOTE | 2018-10-11 23:15 | NUR ---
PT PRESENTED WITH C/O HEART RACING X 3 HOURS AGO. STATED HEART RATE HAS GONE DOWN BUT NOW FEELS LIGHTHEADED, WEAK AND TIRED. 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 HX OF ENDOCARDITIS. MONITORS IN PLACE, CALL LIGHT WITHIN REACH
[2018-10-11] MEDS: LORazepam 2 MG/ML, 1ML IVPush ONE (23:19)
--- NOTE | 2018-10-11 23:22 | NUR ---
PT IV SITE STARTE BY DANE BURRIS. IV FLUIDS INFUSING, PT MEDICATED PER JUL. ERP AT PT'S BEDSIDE FOR EVAL
[2018-10-11 23:28] LABS: MEAN CORPUSCULAR HEMOGLOBIN 19.9 pg (27.0-34.8); MEAN CORPUSCULAR VOLUME 67.3 fL (80-100); MEAN PLATELET VOLUME 8.2 fL (7.4-10.4); PLATELET COUNT 248 x10^3/uL (130-400); RED BLOOD COUNT 4.24 x10^6/uL (3.82-5.3); RED CELL DISTRIBUTION WIDTH 17.5 % (9.6-15.2)
[2018-10-11 23:35] LABS: ALANINE AMINOTRANSFERASE 62 U/L (12-78); ALBUMIN 3.2 g/dL (3.4-5.0); ANION GAP 9 mmol/L (5-15); CALCIUM 8.3 mg/dL (8.5-10.1); CHLORIDE 110 mmol/L (98-107); CREATININE 0.97 mg/dL (0.55-1.02)
[2018-10-11 23:40] LABS: ALKALINE PHOSPHATASE 120 U/L (45-117); BILIRUBIN,TOTAL 0.2 mg/dL (0.2-1.0); T4 (THYROXINE) 12.5 mcg/dL (4.8-13.9); TOTAL PROTEIN 7.8 g/dL (6.4-8.2)
[2018-10-11] MEDS ORDERED: PROPOFOL 10 MG/ML, 20ML ONE (23:41)
[2018-10-11 23:43] LABS: MD YES
[2018-10-11 23:45] LABS: MEAN CORPUSCULAR HGB CONC 29.6 g/dL (32.4-35.8)
[2018-10-11 23:49] LABS: ANISOCYTOSIS 1+; BAND#(MANUAL) 0.05 x10^3/uL; BANDS%(MANUAL) 1 % (0-7); BASOS#(MANUAL) 0.05 x10^3/uL (0-0.1); BASOS% (MANUAL) 1 % (0-1); EOS#(MANUAL) 0.26 x10^3/uL (0.0-0.4); EOS% (MANUAL) 5 % (1-7); LYMPH#(MANUAL) 1.87 x10^3/uL (1-3.4); LYMPHS% (MANUAL) 36 % (22-44); MICROCYTOSIS 1+; MONOS#(MANUAL) 0.62 x10^3/uL (0.3-2.7); MONOS% (MANUAL) 12 % (2-9); SEG#(MANUAL) 2.34 x10^3/uL (1.8-6.8); SEGS% (MANUAL) 45 % (42-75)
[2018-10-11 23:50] LABS: HYPOCHROMIA 1+; OVALOCYTES 1+; TEAR DROPS 1+
[2018-10-11 23:51] LABS: <PLATELET ESTIMATE> ADEQUATE; <PLT MORPHOLOGY> NORMAL PLT MORPH; LARGE PLATELETS 1+
[2018-10-12] MEDS ORDERED: PROPOFOL 10 MG/ML, 20ML IVPush ONE
[2018-10-12] MEDS ORDERED: PROPOFOL 10 MG/ML, 20ML ONE (00:02)
[2018-10-12] MEDS ORDERED: LIDOCAINE 1%-EPI 1:100K, 20ML ONE (00:10)
--- NOTE | 2018-10-12 01:16 | NUR ---
TASK RN: PT HAD PROCEDURAL SEDATION DONE WITH DR VELAZQUEZ AND GILDARDO MAURICIO AT . PROCEDURE INITIATED AT 0043 AND CONCLUDED AT 0107. A TOTAL OF 330 MG OF IV PROPOFOL AND 1L NS WAS ADMINISTERED. PT TOLERATED PROCEDURE WELL. PT VSS AND REMAINED STABLE THROUGHOUT PROCEDURE. PT STILL SLEEPING IN [facility] AT THIS TIME; NADN. 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 PT HAS CALL LIGHT WITHIN REACH. WILL CONTINUE TO REMAIN WITH PT AND MONITOR DURING RECOVERY.
--- NOTE | 2018-10-12 01:22 | NUR ---
TASK RN: PT AROUSABLE TO TOUCH AT THIS TIME. CALL LIGHT IS WITHIN REACH.
[2018-10-12] MEDS ORDERED: CEPHALEXIN 500 MG CAPSULE ONE (01:53)
[2018-10-12] MEDS ORDERED: SULFAMETH./TRIMETHOPRIM DS 800MG/160MG TABLET ONE (01:54)
--- NOTE | 2018-10-12 01:57 | NUR ---
PT RESTING WITH EYES CLOSED, DROWSY BUT OPENS EYES TO VERBAL RESPONSE AND NODS HEAD "NO" WHEN ASK IF HAVING ANY PAIN, RESPIRATIONS EVEN AND UNLABORED, MONITORS IN PLACE, CALL LIGHT WITHIN REACH
[2018-10-12] MEDS ORDERED: SULFAMETH./TRIMETHOPRIM DS 800MG/160MG TABLET PO ONE (02:00)
[2018-10-12] MEDS ORDERED: CEPHALEXIN 500 MG CAPSULE PO ONE (02:00)
--- NOTE | 2018-10-12 02:38 | NUR ---
PT SITTING UP IN BED, TALKING WITH SPOUSE, MEDICATED PER MAR, MONITORS IN PLACE, CALL LIGHT WITHIN REACH
[2018-10-12 02:49] VITALS: BP 138/80
--- NOTE | 2018-10-12 02:51 | NUR ---
PT RESTING CALMLY,DENIES PAIN OR NEEDS, SPO2-99% R/A, VSS, CALL LIGHT WITHIN REACH
== END 2018-10-12 03:09 | disposition home or self-care (01) ==
LOC: ED 23:44
DX: R00.2 Palpitations (principal); L02.213 Cutaneous abscess of chest wall; L02.416 Cutaneous abscess of left lower limb; L02.413 Cutaneous abscess of right upper limb; R00.0 Tachycardia, unspecified; L02.415 Cutaneous abscess of right lower limb; L02.414 Cutaneous abscess of left upper limb; F11.20 Opioid dependence, uncomplicated; F15.20 Other stimulant dependence, uncomplicated
CPT/HCPCS: 10061; 36415; 71045; 80053; 83735; 84436; 84443; 84703; 85025; 93005; 99152; 99153; 99285; J2060; J7030

== ENCOUNTER 2019-06-01 03:58 | Inpatient (IN) | payer MEDICAID, OTHER ==
[~2019-06-01] VITALS: Ht 172.7 cm; Wt 82.4 kg
--- NOTE | 2019-06-01 04:22 | NUR ---
Pt presents to ed c/o L leg swellingxmultiple days. Self reports iv heroin user and utilized leg for "skin popping" and iv drug use. Pt states she does not always utilized aseptic technique for drug use. L leg grossly swollen, red, and hot to the touch. States has been hospitalized for cellulitis in the past and "it was this bad last time." +cms equal bilateral. Monitoring applied. Vss.
[2019-06-01] MEDS ORDERED: VANCOMYCIN 1,300 MG in SODIUM CHLORIDE 0.9% 250 ML IV ONE (05:00)
[2019-06-01] MEDS ORDERED: SODIUM CHLORIDE FLUSH 10ML SYR IVF ONE (05:00)
[2019-06-01] MEDS ORDERED: SODIUM CHLORIDE 0.9% 1,000ML IVBOLUS ONE (05:00)
[2019-06-01] MEDS ORDERED: AMPICILLIN/SULBACTAM 3 GM in SODIUM CHLORIDE 0.9% 100 ML IV ONE (05:00)
[2019-06-01] MEDS ORDERED: VANCOMYCIN PER PHARMACY MC ONE (05:00)
[2019-06-01] MEDS ORDERED: DIPH,PERTUSS(ACELL),TET VAC/PF 0.5 ML IM-VACC ONE ×2 (05:30→12:13)
--- NOTE | 2019-06-01 05:51 | NUR ---
Multiple attempts of iv access unsuccessful by this rn. Will outsource for attempt of iv.
[2019-06-01 05:56] LABS: ALBUMIN 3.2 g/dL (3.4-5.0); ANION GAP 8 mmol/L (5-15); CALCIUM 8.5 mg/dL (8.5-10.1); CHLORIDE 104 mmol/L (98-107)
--- NOTE | 2019-06-01 06:06 | NUR ---
Multiple rn's attempted to gain iv access, no access granted. informed of situation. states to await PICC line team @0700, no central line per md. Lab clint first culture. second culture not drawn yet. Lab notified.
--- NOTE | 2019-06-01 06:14 | NUR ---
at bedside for assessment.
--- NOTE | 2019-06-01 06:51 | NUR ---
Bedside report from [place] [facility]. Lab at bedside to attempt redraw. Pt to get PICC line at 0700 in IR. Pt resting in [facility] with call light within reach. No needs at this time.
[2019-06-01 07:20] LABS: INTERNATIONAL NORMALIZED RATIO 0.99 (0.93-1.1); PROTHROMBIN TIME 10.4 Seconds (9.6-11.5)
--- NOTE | 2019-06-01 07:34 | NUR ---
ROLANDO FROM LAB CALLED WITH HGB 6.7. NOTIFIED. PER MD NO NEED FOR REDRAW FOR CBC.
[2019-06-01 07:36] LABS: MEAN CORPUSCULAR HEMOGLOBIN 17.3 pg (27.0-34.8); MEAN CORPUSCULAR VOLUME 60.2 fL (80-100); MEAN PLATELET VOLUME 9.1 fL (7.4-10.4); PLATELET COUNT 189 x10^3/uL (130-400); RED BLOOD COUNT 3.86 x10^6/uL (3.82-5.3); RED CELL DISTRIBUTION WIDTH 20.4 % (9.6-15.2)
[2019-06-01 07:38] LABS: MEAN CORPUSCULAR HGB CONC 28.7 g/dL (32.4-35.8)
--- NOTE | 2019-06-01 07:51 | NUR ---
IR CALLED ABOUT PICC LINE, RN WAS UNAWARE AND IS TO CALL BACK
[2019-06-01] MEDS ORDERED: SODIUM CHLORIDE FLUSH 10ML SYR IVF PRN (08:00)
[2019-06-01 08:13] LABS: ANISOCYTOSIS 1+; BASOPHILS # (AUTO) 0.06 x10^3/uL (0-0.1); BASOPHILS % (AUTO) 1 % (0-1); EOSINOPHILS % (AUTO) 2 % (1-7); LYMPHOCYTES # (AUTO) 1.52 x10^3/uL (1-3.4); LYMPHOCYTES % (AUTO) 14 % (22-44); MD MORPH REVIEW ONLY; MICROCYTOSIS 1+; MONOCYTES # (AUTO) 1.05 x10^3/uL (0.2-0.8); MONOCYTES % (AUTO) 10 % (2-9); NEUTROPHILS % (AUTO) 74 % (42-75)
[2019-06-01 08:14] LABS: <PLATELET ESTIMATE> ADEQUATE; HYPOCHROMIA 2+; LARGE PLATELETS 1+; OVALOCYTES 1+; POLYCHROMASIA 1+
--- NOTE | 2019-06-01 08:15 | NUR ---
IR CALLED AGAIN ABOUT PICC, RN INFORMED TEAM IS WAITING ON MD AND WILL GET PICC WHEN ARRIVES. NOTIFIED AND OK TO WAIT ON BLOOD AND IV ABX UNTIL PICC OBTAINED. PT DOES NOT MEET SEPSIS CRITERIA, VSS. WILL CONTINUE TO MONITOR.
--- NOTE | 2019-06-01 08:19 | NUR ---
OK PER PA FOR PT TO EAT, BREAKFAST TRAY ORDERED.
[2019-06-01] MEDS ORDERED: VANCOMYCIN PER PHARMACY MC PRN (09:00)
[2019-06-01] MEDS ORDERED: POTASSIUM CHLORIDE 20 MEQ TAB.ER.PRT PO ONE (09:00)
[2019-06-01] MEDS ORDERED: ACETAMINOPHEN 325 MG TABLET PO PRN (09:00)
[2019-06-01] MEDS: AMPICILLIN/SULBACTAM 3 GM in SODIUM CHLORIDE 0.9% 100 ML IV SCH ×2 (09:00→17:12)
[2019-06-01] MEDS ORDERED: ONDANSETRON 2MG/ML, 2ML IVPush PRN (09:00)
[2019-06-01] MEDS ORDERED: KETOROLAC 30 MG/1 ML IV PRN (09:00)
[2019-06-01] MEDS ORDERED: ENOXAPARIN 40 MG/0.4 ML SQ SCH (09:00)
[2019-06-01] MEDS ORDERED: ONDANSETRON ODT 4 MG PO PRN (09:00)
--- NOTE | 2019-06-01 09:00 | NUR ---
COTTON CHOPPER NOTIFIED PT STILL DOES NOT HAVE PICC, COTTON CHOPPER CALLED IR.
--- NOTE | 2019-06-01 09:28 | NUR ---
PASTE UP ARTIST APPRENTICE SPOKE WITH IR DEPT AGAIN, APPROX 15-20 MIN AND PT WILL GET PICC. BLOOD READY, BLOOD BANK NOTIFIED RN STILL AWAITING IV ACCESS.
--- NOTE | 2019-06-01 10:04 | NUR ---
TASK RN: PT REMAINS IN ED ROOM 14. HAS NOT GONE TO [facility]. ANNAMARIE, [employer]ARD[employer]OD FLOOR FINISHER NOTIFIED. LEODAN, HOT BOX SPOTTER NOTIFIED OF NEED FOR PICC LINE FOR IV ABX AND BLOOD TRANSFUSION FOR PT.
--- NOTE | 2019-06-01 10:07 | NUR ---
RN GREENSMAN: PT IN IR AT THIS TIME. ALERT AND INTERACTING WELL WITH STAFF.
--- NOTE | 2019-06-01 10:45 | NUR ---
PT RETURNED FROM IR WITH SINGLE LUMEN PICC. BLOOD AND IV ABX NOT COMPATIBLE, PER GILDARDO AND RUN IV UNASYN, THEN BLOOD, THEN IV VANCO.
--- NOTE | 2019-06-01 10:55 | NUR ---
CALL FROM MELINA IN LAB, HGB 6.3 HCT 21.2. AWARE, BLOOD ORDERED AND AWAITING COMPLETION OF IV ABX TO INFUSE BLOOD.
[2019-06-01 10:58] LABS: MEAN CORPUSCULAR HEMOGLOBIN 17.7 pg (27.0-34.8); MEAN CORPUSCULAR VOLUME 59.7 fL (80-100); MEAN PLATELET VOLUME 8.7 fL (7.4-10.4); PLATELET COUNT 189 x10^3/uL (130-400); RED BLOOD COUNT 3.55 x10^6/uL (3.82-5.3); RED CELL DISTRIBUTION WIDTH 20.2 % (9.6-15.2)
[2019-06-01 11:00] LABS: MEAN CORPUSCULAR HGB CONC 29.6 g/dL (32.4-35.8)
[2019-06-01 11:11] LABS: BASOPHILS % (AUTO) 0 % (0-1); EOSINOPHILS # (AUTO) 0.28 x10^3/uL (0-0.4); EOSINOPHILS % (AUTO) 3 % (1-7); LYMPHOCYTES # (AUTO) 1.12 x10^3/uL (1-3.4); LYMPHOCYTES % (AUTO) 11 % (22-44); MD SCAN; MONOCYTES # (AUTO) 0.98 x10^3/uL (0.2-0.8); MONOCYTES % (AUTO) 10 % (2-9); NEUTROPHILS # (AUTO) 7.85 x10^3/uL (1.8-6.8); NEUTROPHILS % (AUTO) 77 % (42-75)
--- NOTE | 2019-06-01 11:51 | NUR ---
PHARMACY NOTIFIED OF VANCO DUE AT 0500 NOT ABLE TO BE GIVEN, PER PHARMACY NOTIFY THEM WHEN BLOOD TRANSFUSION ALMOST COMPLETE AND THEY WILL PREPARE NEW VANCO DOSE. 0500 VANCO DOSE SENT BACK TO PHARMACY.
--- NOTE | 2019-06-01 12:10 | NUR ---
REQ SENT FOR BLOOD, LAB CALLED AND NOTIFIED
[2019-06-01] MEDS ORDERED: POTASSIUM CHLORIDE 20 MEQ TAB.ER.PRT ONE (12:13)
[2019-06-01 12:22] VITALS: BP 121/64
--- NOTE | 2019-06-01 12:30 | NUR ---
BLOOD TRANSFUSION STARTED AT 1221, VERIFIED BY BRIAN Myrick RN, SEE TRANSFUSION FLOWSHEET
[2019-06-01 13:08] VITALS: BP 118/61
--- NOTE | 2019-06-01 13:20 | NUR ---
NO S/SXS OF TRANSFUSION REACTION AT THIS TIME. PT ON MONITOR RESTING IN [facility]. AWAITING BED ASSIGNMENT.
--- NOTE | 2019-06-01 13:39 | NUR ---
REPORT TO KAREN RN, BLOOD INFUSING ON TRANSFER TO FLOOR. KAREN RN AWARE SHE IS TO NOTIFIY PHARMACY OF NEED FOR VANCO DOSE WHEN BLOOD DONE
[2019-06-01] MEDS ORDERED: PHARMACOKINETIC MONITORING MC PRN (15:00)
[2019-06-01] MEDS: VANCOMYCIN 1,300 MG in SODIUM CHLORIDE 0.9% 250 ML IV SCH (15:41)
[2019-06-01] MEDS: SODIUM CHLORIDE 0.9% 1,000 ML IV SCH (15:41)
[2019-06-01] MEDS: ENOXAPARIN 40 MG/0.4 ML SQ SCH (15:43)
[2019-06-01 16:13] VITALS: BP 147/84
[2019-06-01] MEDS: IBUPROFEN 600 MG TABLET PO PRN (17:12)
[2019-06-01 20:13] VITALS: BP 128/73
[2019-06-01 20:36] LABS: AMPHETAMINE SCREEN, URINE Positive (Negative); BARBITURATE SCREEN, URINE Negative (Negative); BENZODIAZEPINE SCREEN, URINE Negative (Negative); CANNABINOID SCREEN, URINE Negative (Negative); COCAINE SCREEN, URINE Negative (Negative); METHADONE SCREEN, URINE Negative (Negative); OPIATE SCREEN, URINE Positive (Negative)
[2019-06-01 21:19] LABS: MEAN CORPUSCULAR HEMOGLOBIN 18.3 pg (27.0-34.8); MEAN CORPUSCULAR VOLUME 61.7 fL (80-100); MEAN PLATELET VOLUME 8.8 fL (7.4-10.4); PLATELET COUNT 185 x10^3/uL (130-400); RED BLOOD COUNT 3.83 x10^6/uL (3.82-5.3); RED CELL DISTRIBUTION WIDTH 22.4 % (9.6-15.2)
[2019-06-01 21:20] LABS: EOS#(MANUAL) 0.22 x10^3/uL (0.0-0.4); EOS% (MANUAL) 2 % (1-7); LYMPH#(MANUAL) 1.62 x10^3/uL (1-3.4); LYMPHS% (MANUAL) 15 % (22-44); MD YES; MONOS#(MANUAL) 0.65 x10^3/uL (0.3-2.7); MONOS% (MANUAL) 6 % (2-9); SEG#(MANUAL) 8.32 x10^3/uL (1.8-6.8); SEGS% (MANUAL) 77 % (42-75)
[2019-06-01 21:21] LABS: HYPOCHROMIA 2+; MICROCYTOSIS 2+; OVALOCYTES 1+
[2019-06-01 21:22] LABS: ANISOCYTOSIS 2+; POLYCHROMASIA 1+
[2019-06-01 21:23] LABS: <PLATELET ESTIMATE> ADEQUATE; <PLT MORPHOLOGY> NORMAL PLT MORPH
[2019-06-01 21:29] LABS: MEAN CORPUSCULAR HGB CONC 29.6 g/dL (32.4-35.8)
[2019-06-02] MEDS: AMPICILLIN/SULBACTAM 3 GM in SODIUM CHLORIDE 0.9% 100 ML IV SCH ×3 (01:05→17:55)
[2019-06-02 02:22] VITALS: BP 110/70
[2019-06-02] MEDS: VANCOMYCIN 1,300 MG in SODIUM CHLORIDE 0.9% 250 ML IV SCH ×2 (04:08→15:37)
[2019-06-02 06:11] LABS: % IRON SATURATION 4 % (20-55); ALANINE AMINOTRANSFERASE 31 U/L (12-78); ALBUMIN 2.8 g/dL (3.4-5.0); ANION GAP 5 mmol/L (5-15); CALCIUM 8.4 mg/dL (8.5-10.1); CHLORIDE 110 mmol/L (98-107); CREATININE 0.68 mg/dL (0.55-1.02); IRON LEVEL 14 mcg/dL (50-170); TOTAL IRON BINDING CAPACITY 398 mcg/dL (250-450)
[2019-06-02 06:15] LABS: ALKALINE PHOSPHATASE 89 U/L (45-117); BILIRUBIN,TOTAL 0.6 mg/dL (0.2-1.0); TOTAL PROTEIN 7.2 g/dL (6.4-8.2)
[2019-06-02 08:11] VITALS: BP 142/77
[2019-06-02] MEDS: SODIUM CHLORIDE 0.9% 1,000 ML IV SCH (10:00)
[2019-06-02 13:20] VITALS: BP 146/81
[2019-06-02] MEDS: LORazepam 1MG TABLET PO PRN ×2 (15:37→16:50)
[2019-06-02] MEDS: ENOXAPARIN 40 MG/0.4 ML SQ SCH (15:37)
[2019-06-02] MEDS: IBUPROFEN 600 MG TABLET PO PRN (23:26)
[2019-06-03] MEDS: AMPICILLIN/SULBACTAM 3 GM in SODIUM CHLORIDE 0.9% 100 ML IV SCH ×3 (01:09→17:56)
[2019-06-03 03:05] VITALS: BP 114/71
[2019-06-03] MEDS: VANCOMYCIN 1,300 MG in SODIUM CHLORIDE 0.9% 250 ML IV SCH ×2 (04:10→15:54)
[2019-06-03 12:35] LABS: MEAN CORPUSCULAR HEMOGLOBIN 18.2 pg (27.0-34.8); MEAN CORPUSCULAR VOLUME 62.9 fL (80-100); MEAN PLATELET VOLUME 8.7 fL (7.4-10.4); PLATELET COUNT 194 x10^3/uL (130-400); RED BLOOD COUNT 3.94 x10^6/uL (3.82-5.3); RED CELL DISTRIBUTION WIDTH 22.7 % (9.6-15.2)
[2019-06-03] MEDS ORDERED: BUPRENORPHINE/NALOXONE 8-2MG SL ONE (12:44)
[2019-06-03 12:57] LABS: MD YES
[2019-06-03 12:58] LABS: ANISOCYTOSIS 2+; EOS#(MANUAL) 0.42 x10^3/uL (0.0-0.4); EOS% (MANUAL) 8 % (1-7); HYPOCHROMIA 2+; LYMPH#(MANUAL) 0.85 x10^3/uL (1-3.4); LYMPHS% (MANUAL) 16 % (22-44); MICROCYTOSIS 2+; MONOS#(MANUAL) 0.37 x10^3/uL (0.3-2.7); MONOS% (MANUAL) 7 % (2-9); SEG#(MANUAL) 3.66 x10^3/uL (1.8-6.8); SEGS% (MANUAL) 69 % (42-75)
[2019-06-03 12:59] LABS: <PLATELET ESTIMATE> ADEQUATE; <PLT MORPHOLOGY> NORMAL PLT MORPH; OVALOCYTES 1+; POLYCHROMASIA 1+
[2019-06-03] MEDS: BUPRENORPHINE/NALOXONE 2-0.5MG SL SCH (13:00)
[2019-06-03] MEDS: ENOXAPARIN 40 MG/0.4 ML SQ SCH (15:54)
[2019-06-03] MEDS: SODIUM CHLORIDE 0.9% 1,000 ML IV SCH (15:58)
[2019-06-04] MEDS: AMPICILLIN/SULBACTAM 3 GM in SODIUM CHLORIDE 0.9% 100 ML IV SCH ×2 (01:21→09:05)
[2019-06-04 04:22] VITALS: BP 142/88
[2019-06-04] MEDS: VANCOMYCIN 1,300 MG in SODIUM CHLORIDE 0.9% 250 ML IV SCH (04:36)
[2019-06-04 08:26] VITALS: BP 154/91
[2019-06-04] MEDS ORDERED: FERROUS SULFATE 325 MG TABLET PO SCH (09:00)
[2019-06-04] MEDS ORDERED: CARVEDILOL 3.125 MG TABLET PO SCH (09:00)
[2019-06-04] MEDS: SODIUM CHLORIDE 0.9% 1,000 ML IV SCH (09:05)
[2019-06-04] MEDS: BUPRENORPHINE/NALOXONE 2-0.5MG SL SCH (09:08)
[2019-06-04] MEDS ORDERED: IBUP-1222 PO (12:32)
[2019-06-04] MEDS ORDERED: CARV3.1212 PO (12:32)
[2019-06-04] MEDS ORDERED: FERR-51 PO (12:32)
[2019-06-04] MEDS ORDERED: LINE600T15 PO (12:32)
[2019-06-04] MEDS ORDERED: ACET325T26 PO (12:32)
[2019-06-04] MEDS ORDERED: FLU VACC QS2019-20 36MOS UP/PF 0.5 ML IM-VACC ONE (13:30)
[2019-06-04 14:01] VITALS: BP 142/81
== END 2019-06-04 14:47 | disposition home or self-care (01) | DRG 603 ==
LOC: ED 04:29 → EDIP 07:50 → 3N 14:02
PROVIDERS: ADMIT Internal Medicine; ATTEND Internal Medicine
PROC: 30233N1 Transfusion of Nonautologous Red Blood Cells into Peripheral Vein, Percutaneous Approach (ICD-10-PCS; principal; 2019-06-01)
PROC: 02HV33Z Insertion of Infusion Device into Superior Vena Cava, Percutaneous Approach (ICD-10-PCS; 2019-06-01)
PROC: B548ZZA Ultrasonography of Superior Vena Cava, Guidance (ICD-10-PCS; 2019-06-01)
PROC: B5181ZA Fluoroscopy of Superior Vena Cava using Low Osmolar Contrast, Guidance (ICD-10-PCS; 2019-06-01)
DX: L03.116 Cellulitis of left lower limb (principal); E87.1 Hypo-osmolality and hyponatremia; F11.23 Opioid dependence with withdrawal; B18.2 Chronic viral hepatitis C; D50.0 Iron deficiency anemia secondary to blood loss (chronic); D63.8 Anemia in other chronic diseases classified elsewhere; E03.9 Hypothyroidism, unspecified; F32.9 Major depressive disorder, single episode, unspecified; M48.00 Spinal stenosis, site unspecified; E87.6 Hypokalemia; M79.7 Fibromyalgia; Z63.8 Other specified problems related to primary support group; Z80.3 Family history of malignant neoplasm of breast; Z80.49 Family history of malignant neoplasm of other genital organs; Z86.14 Personal history of Methicillin resistant Staphylococcus aureus infection; Z91.14 Patient's other noncompliance with medication regimen
CPT/HCPCS: 36415; 73590; 84145; 87806; 96374; 99291; J0572; 36430; 36573; 80048; 80053; 80202; 80307; 82040; 83540; 83550; 83605; 83735; 84702; 85025; 85610; 85730; 86850; 86900; 86923; 87040; 90471; 90686; 90715; G0378; J0295; J1650; J3370; C1751; G0475; J7030; J7050; P9016

== ENCOUNTER 2019-09-07 00:08 | Emergency (ER) | payer MEDICAID ==
[~2019-09-07] VITALS: Ht 172.7 cm; Wt 85.4 kg
[~2019-09-07 00:08] MED LIST changes: +ACET325T26 PO; +CARV3.1212 PO; +FERR-51 PO; +IBUP-1222 PO; +LINE600T15 PO
--- NOTE | 2019-09-07 00:43 | NUR ---
Patient presents to ER c/o cellulitis in L leg; swelling x3 days. Patient states she has a hx of cellulitis. Patient is in NAD. Respirations even and unlabored.
[2019-09-07 01:37] LABS: MEAN CORPUSCULAR HEMOGLOBIN 19.4 pg (27.0-34.8); MEAN CORPUSCULAR VOLUME 65.3 fL (80-100); MEAN PLATELET VOLUME 8.1 fL (7.4-10.4); PLATELET COUNT 270 x10^3/uL (130-400); RED BLOOD COUNT 3.91 x10^6/uL (3.82-5.3); RED CELL DISTRIBUTION WIDTH 20.7 % (9.6-15.2)
[2019-09-07 01:45] LABS: ALBUMIN 2.9 g/dL (3.4-5.0); ANION GAP 4 mmol/L (5-15); CALCIUM 8.5 mg/dL (8.5-10.1); CHLORIDE 106 mmol/L (98-107); CREATININE 0.72 mg/dL (0.55-1.02)
--- NOTE | 2019-09-07 01:50 | NUR ---
Patient resting in [facility] with no complaints. Awaiting US.
[2019-09-07 01:59] LABS: MD YES
[2019-09-07 02:04] LABS: ANISOCYTOSIS 1+; BAND#(MANUAL) 0.04 x10^3/uL; BANDS%(MANUAL) 1 % (0-7); BASOS#(MANUAL) 0.04 x10^3/uL (0-0.1); BASOS% (MANUAL) 1 % (0-1); EOS#(MANUAL) 0.13 x10^3/uL (0.0-0.4); EOS% (MANUAL) 3 % (1-7); LYMPH#(MANUAL) 1.58 x10^3/uL (1-3.4); LYMPHS% (MANUAL) 36 % (22-44); MONOS% (MANUAL) 9 % (2-9); SEGS% (MANUAL) 50 % (42-75)
[2019-09-07 02:05] LABS: HYPOCHROMIA 1+; MICROCYTOSIS 2+; OVALOCYTES 1+; POLYCHROMASIA 1+
[2019-09-07 02:06] LABS: <PLATELET ESTIMATE> ADEQUATE; <PLT MORPHOLOGY> NORMAL PLT MORPH; MEAN CORPUSCULAR HGB CONC 29.8 g/dL (32.4-35.8)
--- NOTE | 2019-09-07 02:20 | NUR ---
US in room.
[2019-09-07 02:42] VITALS: BP 132/72
--- NOTE | 2019-09-07 02:58 | NUR ---
Discharge instructions given. All questions and concerns addressed. Patient ambulatory with a steady gait. Belongings with patient.
== END 2019-09-07 02:59 | disposition home or self-care (01) ==
LOC: ED 00:51
DX: L03.116 Cellulitis of left lower limb (principal); E03.9 Hypothyroidism, unspecified; M79.7 Fibromyalgia; Z87.891 Personal history of nicotine dependence
CPT/HCPCS: 36415; 80048; 82040; 85025; 87040; 99284

== ENCOUNTER 2020-08-17 14:30 | Emergency (ER) | payer MEDICAID ==
[~2020-08-17] VITALS: Ht 175.3 cm; Wt 85.9 kg
[~2020-08-17 14:30] MED LIST changes: +AMLO-211 PO; -AMLO10TA8 PO; +OMNIPAQUE 350 MG/ML, 100ML BOTTLE ONE
--- NOTE | 2020-08-17 14:54 | NUR ---
ERP DR. KHALIL NOTIFIED OF PT. STATES NO NEED TO CALL CODE NEURO.
--- NOTE | 2020-08-17 15:21 | NUR ---
BREAK RN: THIS IS A 50 YEAR OLD FEMALE WHO HAD LIP FILLER INJECTIONS IN LIPS, PT STATES SHE FELT A "POP" AND THEN HAS NUMBNESS AND TINGLING ON RIGHT SIDE OF FACE UP TO EYE.
--- NOTE | 2020-08-17 15:48 | NUR ---
BREAK RN: PT IS A HEROIN USING, NO IV ACCESS, REQUESTED ASSISTANCE FROM [facility], TO PLACE A ULTRASOUND IV IN.
[2020-08-17] MEDS ORDERED: SODIUM CHLORIDE FLUSH 10ML SYR IVF ONE (16:00)
--- NOTE | 2020-08-17 16:02 | NUR ---
PT RESTING ON RIVERA. KARELY. VSS. [place], DAPHNEY AT [facility] ATTEMPTING US GUIDED PIV FOR CT.
[2020-08-17 16:19] LABS: BASOPHILS % (AUTO) 1 % (0-1); EOSINOPHILS % (AUTO) 5 % (1-7); LYMPHOCYTES % (AUTO) 18 % (22-44); MEAN CORPUSCULAR HEMOGLOBIN 26.9 pg (27.0-34.8); MEAN CORPUSCULAR HGB CONC 32.4 g/dL (32.4-35.8); MEAN PLATELET VOLUME 9.5 fL (7.4-10.4); MONOCYTES % (AUTO) 11 % (2-9); NEUTROPHILS % (AUTO) 65 % (42-75); PLATELET COUNT 165 x10^3/uL (130-400); RED BLOOD COUNT 4.14 x10^6/uL (3.82-5.3); RED CELL DISTRIBUTION WIDTH 15.5 % (9.6-15.2)
[2020-08-17 16:21] LABS: MD NO
[2020-08-17 16:30] LABS: ALBUMIN 3.2 g/dL (3.4-5.0); CALCIUM 8.3 mg/dL (8.5-10.1)
[2020-08-17 16:31] LABS: CREATININE 1.04 mg/dL (0.55-1.02)
[2020-08-17 16:41] LABS: ANION GAP 6 mmol/L (5-15); CHLORIDE 108 mmol/L (98-107)
[2020-08-17 17:29] VITALS: BP 151/89
--- NOTE | 2020-08-17 17:30 | NUR ---
PT RESTING ON GURNEY. NADN. MARSH.
--- NOTE | 2020-08-17 17:38 | NUR ---
PT CHART REVIEWED AND PLACED FOR RECHECK.
== END 2020-08-17 18:24 | disposition home or self-care (01) ==
LOC: ED 18:15
DX: L03.116 Cellulitis of left lower limb (principal); R20.2 Paresthesia of skin; E03.9 Hypothyroidism, unspecified; Z87.891 Personal history of nicotine dependence
CPT/HCPCS: 36415; 70487; 80048; 82040; 85025; 99285; Q9967